=== PATIENT | male | born 1960 ===

== ENCOUNTER 2017-02-18 08:32 | Emergency (ER) | payer MEDICAID ==
[2017-02-18 08:38] VITALS: BMI 33.2
[2017-02-18 08:45] VITALS: BP 160/78; PULSE 65; RESP 16; TEMP 98.3; O2SAT 98
[2017-02-18] MEDS ORDERED: Naproxen 550 mg Tab PO STA (08:46)
--- NOTE | 2017-02-18 08:51 | ED PDOC ---
Arrival/HPI - General Chief Complaint: Upper Extremity Problem/Injury Time Seen by Provider: 02/18/17 08:43 Historian: Patient - History of Present Illness Narrative History of Present Illness (Text): 02/18/17 08:46 A 56 year old male presents to the emergency department complaining of left shoulder pain since this morning. Patient states his pain is worse with movement.He reports he was lifting weights last night at the gym. Patient denies any falls, trauma, other injuries, fever, nausea, vomiting, diarrhea, abdominal pain, chest pain, shortness of breath or any other complaints. Time/Duration: Other (This morning) Symptom Course: Unchanged Quality: Other Context: Home Past Medical History - Provider Review Nursing Documentation Reviewed: Yes - Infectious Disease Hx of Infectious Diseases: None - Tetanus Immunization Tetanus Immunization: Unknown - Cardiac Hx Cardiac Disorders: No - Pulmonary Hx Respiratory Disorders: No - Neurological Hx Neurological Disorder: No - HEENT Hx HEENT Disorder: No - Renal Hx Renal Disorder: No - Endocrine/Metabolic Hx Endocrine Disorders: No - Hematological/Oncological Hx Blood Disorders: No - Integumentary Hx Dermatological Disorder: No - Musculoskeletal/Rheumatological Hx Musculoskeletal Disorders: No - Gastrointestinal Hx Gastrointestinal Disorders: No - Genitourinary/Gynecological Hx Genitourinary Disorders: No - Psychiatric Hx Psychophysiologic Disorder: Yes Hx Bipolar Disorder: Yes (1) Hx Substance Use: No - Surgical History Hx Orthopedic Surgery: Yes - Anesthesia Hx Anesthesia: No Hx Anesthesia Reactions: No Hx Malignant Hyperthermia: No Family/Social History - Physician Review Nursing Documentation Reviewed: Yes Family/Social History: No Known Family HX Smoking Status: Light Smoker < 10 Cigarettes Daily Hx Alcohol Use: No Hx Substance Use: No Allergies/Home Meds Allergies/Adverse Reactions: Allergies No Known Allergies Allergy (Verified 07/19/16 10:16) Home Medications: Home Meds Medication Instructions Recorded Confirmed Divalproex [Depakote DR TAB] 1,500 mg PO BID 11/09/15 07/19/16 buPROPion [Wellbutrin] 75 mg PO DAILY 11/09/15 07/19/16 Review of Systems - Physician Review All systems were reviewed & negative as marked: Yes - Review of Systems Constitutional: absent: Fevers Respiratory: absent: SOB Cardiovascular: absent: Chest Pain Gastrointestinal: absent: Abdominal Pain, Diarrhea, Nausea, Vomiting Genitourinary Male: Other (Left shoulder pain) Physical Exam Vital Signs Reviewed: Yes Vital Signs Temp Pulse Resp BP Pulse Ox 02/18/17 08:44 98.3 F 65 16 160/78 H 98 Temperature: Afebrile Blood Pressure: Hypertensive Pulse: Regular Respiratory Rate: Normal Appearance: Positive for: Well-Appearing, Non-Toxic, Comfortable Pain Distress: None Mental Status: Positive for: Alert and Oriented X 3 - Systems Exam Head: Present: Atraumatic, Normocephalic Pupils: Present: PERRL Extroacular Muscles: Present: EOMI Conjunctiva: Present: Normal Respiratory/Chest: Present: Clear to Auscultation, Good Air Exchange. No: Respiratory Distress, Accessory Muscle Use Cardiovascular: Present: Regular Rate and Rhythm, Normal S1, S2. No: Murmurs Upper Extremity: Present: NORMAL PULSES, Tenderness (Left shoulder tenderness to palpation), Neurovascularly Intact. No: Cyanosis, Edema, Normal ROM ( Limited ROM secondary to pain), Swelling, Erythema, Temperature Abnormalties, Deformity Neurological: Present: GCS=15, CN II-XII Intact, Speech Normal Skin: Present: Warm, Dry, Normal Color. No: Rashes Psychiatric: Present: Alert, Oriented x 3, Normal Insight, Normal Concentration Medical Decision Making ED Course and Treatment: 02/18/17 08:46 Impression: A 56 year old male with left shoulder pain, worse with movement. Plan: -- Left shoulder xray -- Naproxen -- Reassess and disposition Progress Notes: 02/18/17 09:32 pt given sling, advise outpt ortho f/u neurovasc intact 02/18/17 09:32 - RAD Interpretation Radiology Orders: 02/18/17 08:46 SHOULDER LEFT [RAD] Stat - Medication Orders Current Medication Orders: Discontinued Medications Naproxen (Anaprox Ds) 550 mg PO STAT STA Stop: 02/18/17 08:47 Last Admin: 02/18/17 09:01 Dose: 550 MG - Scribe Statement The provider has reviewed the documentation as recorded by the Nikita Huerta Provider Scribe Attestation: All medical record entries made by the Scribe were at my direction and personally dictated by me. I have reviewed the chart and agree that the record accurately reflects my personal performance of the history, physical exam, medical decision making, and the department course for this patient. I have also personally directed, reviewed, and agree with the discharge instructions and disposition. Disposition/Present on Arrival - Present on Arrival Any Indicators Present on Arrival: No History of DVT/PE: No History of Uncontrolled Diabetes: No Urinary Catheter: No History of Decub. Ulcer: No History Surgical Site Infection Following: None - Disposition Have Diagnosis and Disposition been Completed?: Yes Diagnosis: Shoulder sprain Disposition: HOME/ ROUTINE Disposition Time: 09:32 Condition: STABLE Discharge Instructions (ExitCare): Shoulder Sprain (ED) Additional Instructions: please follow up with specialist and pmd/clinic. return to er with worsening symptoms or concerns. Prescriptions: Naproxen 500 mg PO BID PRN #14 tab PRN Reason: Pain, Mild (1-3)
--- NOTE | 2017-02-18 10:18 | RAD ---
PROCEDURE: Radiographs of the Left Shoulder HISTORY: trauma COMPARISON: No prior. FINDINGS: BONES: There is an old fracture deformity of the mid clavicle. JOINTS: Normal. Glenohumeral and acromioclavicular joints preserved. No osteoarthritis. SOFT TISSUES: Normal. OTHER FINDINGS: None. IMPRESSION: No acute findings
== END 2017-02-18 09:58 | disposition home or self-care (01) ==
LOC: ED 08:32
DX: S43.402A Unspecified sprain of left shoulder joint, initial encounter (principal); X50.0XXA Overexertion from strenuous movement or load, initial encounter; Y93.B3 Activity, free weights; Y92.39 Other specified sports and athletic area as the place of occurrence of the external cause

== ENCOUNTER 2017-04-06 11:01 | Emergency (ER) | payer SELFPAY ==
[2017-04-06 11:12] VITALS: PULSE 66; RESP 16; TEMP 98; O2SAT 98; BMI 32.3
--- NOTE | 2017-04-06 12:18 | RAD ---
PROCEDURE: Right Foot Radiographs. HISTORY: pain to 1st and 2nd toe; s/p table falling on toes COMPARISON: None. FINDINGS: BONES: There is a fracture through the base of the 1st distal phalanx on the lateral side JOINTS: Normal. SOFT TISSUES: Normal. OTHER FINDINGS: None. IMPRESSION: There is a fracture through the base of the 1st distal phalanx on the lateral side
--- NOTE | 2017-04-06 12:29 | ED PDOC ---
Arrival/HPI - General Historian: Patient - History of Present Illness Time/Duration: Other (yesterday) Quality: Throbbing Severity Level: 5 - General Chief Complaint: Lower Extremity Problem/Injury Time Seen by Provider: 04/06/17 11:21 - History of Present Illness Narrative History of Present Illness (Text): 04/06/17 13:42 56-year-old male presents today with a right great toe and second toe pain status post injury. Patient states yesterday a table fell on the foot. Patient is complaining of pain to the toes. He denies numbness weakness or tingling in the extremity. He is complaining of pain with range of motion of the toes. Denies fevers or chills. Patient states the table came across and landed on the first and second toe and he noticed bruising today. Complaining of difficulty with ambulation. (Teagan Lazcano) Past Medical History - Provider Review Nursing Documentation Reviewed: Yes - Travel History Have you recently traveled outside [place] w/in the past 3 mons?: No - Infectious Disease Hx of Infectious Diseases: None - Tetanus Immunization Tetanus Immunization: Unknown - Cardiac Hx Cardiac Disorders: No - Pulmonary Hx Respiratory Disorders: No - Neurological Hx Neurological Disorder: No - HEENT Hx HEENT Disorder: No - Renal Hx Renal Disorder: No - Endocrine/Metabolic Hx Endocrine Disorders: No - Hematological/Oncological Hx Blood Disorders: No - Integumentary Hx Dermatological Disorder: No - Musculoskeletal/Rheumatological Hx Musculoskeletal Disorders: No - Gastrointestinal Hx Gastrointestinal Disorders: No - Genitourinary/Gynecological Hx Genitourinary Disorders: No - Psychiatric Hx Psychophysiologic Disorder: Yes Hx Bipolar Disorder: Yes (1) Hx Substance Use: No - Surgical History Hx Orthopedic Surgery: Yes - Anesthesia Hx Anesthesia: No Hx Anesthesia Reactions: No Hx Malignant Hyperthermia: No Family/Social History - Physician Review Nursing Documentation Reviewed: Yes Family/Social History: Unknown Family HX Smoking Status: Light Smoker < 10 Cigarettes Daily Hx Alcohol Use: No Hx Substance Use: No Allergies/Home Meds Allergies/Adverse Reactions: Allergies No Known Allergies Allergy (Verified 07/19/16 10:16) Home Medications: Home Meds Medication Instructions Recorded Confirmed Divalproex [Depakote DR TAB] 1,500 mg PO BID 11/09/15 04/06/17 buPROPion [Wellbutrin] 75 mg PO DAILY 11/09/15 04/06/17 Review of Systems - Review of Systems Constitutional: absent: Fatigue, Fevers Respiratory: absent: SOB, Cough Cardiovascular: absent: Chest Pain, Palpitations Gastrointestinal: absent: Abdominal Pain Genitourinary Male: absent: Dysuria Musculoskeletal: Arthralgias. absent: Back Pain, Neck Pain Skin: absent: Laceration Psychiatric: absent: Anxiety, Depression Physical Exam Vital Signs Reviewed: Yes Temperature: Afebrile Blood Pressure: Hypertensive Pulse: Regular Respiratory Rate: Normal Appearance: Positive for: Well-Appearing, Non-Toxic, Comfortable Pain Distress: None Mental Status: Positive for: Alert and Oriented X 3 - Systems Exam Head: Present: Atraumatic Respiratory/Chest: Present: Clear to Auscultation Cardiovascular: Present: Regular Rate and Rhythm Lower Extremity: Present: NORMAL PULSES, Tenderness (right foot; + edema and ecchymosis noted to dorsal aspect of the right great toe and 2nd toe. decreased rom of toes; sensation and distal pulses intact. cap refill <2. ), Swelling, Neurovascularly Intact, Capillary Refill < 2 s. No: CALF TENDERNESS, Normal ROM , Erythema Neurological: Present: GCS=15 Skin: Present: Warm, Dry, Normal Color Psychiatric: Present: Alert, Oriented x 3 Vital Signs Temp Pulse Resp BP Pulse Ox 04/06/17 13:00 66 16 158/72 H 98 04/06/17 11:08 98.0 F 66 16 158/89 H 98 Medical Decision Making ED Course and Treatment: I was available for consultation during PA evaluation. The chart was reviewed by me, and I agree with disposition. The documented history was done by the physician blood bank technician. The documented physical exam was done by the physician blood bank technician. The documented procedures were done by the physician blood bank technician. (Wojciech Sorensen) Patient is nontoxic well-appearing in no distress. vital signs are stable. XRAY right foot; + fx great toe COY TAPE TOE cane given for ambulation I discussed all results in depth with the patient and advised follow-up with the primary care physician/orthopedist within the next 2 days. I advised immediate return if symptoms worsen or persist or if new concerning symptoms develop. Patient verbalizes understanding of discharge instructions and need for immediate followup. IMPRESSION;Contusion, TOE Motrin every 6 hours as needed for pain Follow up with primary care physician within the next 2 days Follow up with the orthopedist within the next 2 days Return if symptoms worsen persist or if new symptoms develop (Teagan Lazcano) - RAD Interpretation Radiology Orders: 04/06/17 11:22 FOOT RIGHT 3 VIEWS ROUTINE [RAD] Stat - Medication Orders Current Medication Orders: Discontinued Medications Ketorolac Tromethamine (Toradol) 60 mg IM STAT STA Stop: 04/06/17 11:24 Last Admin: 04/06/17 12:05 Dose: 60 mg Disposition/Present on Arrival - Present on Arrival Any Indicators Present on Arrival: No History of DVT/PE: No History of Uncontrolled Diabetes: No Urinary Catheter: No History of Decub. Ulcer: No History Surgical Site Infection Following: None - Disposition Have Diagnosis and Disposition been Completed?: Yes Disposition Time: 12:26 Patient Plan: Discharge - Disposition Diagnosis: Toe fracture Disposition: HOME/ ROUTINE Condition: GOOD Discharge Instructions (ExitCare): Toe Fracture (ED) Additional Instructions: Motrin every 6 hours as needed for pain Follow up with primary care physician within the next 2 days Follow up with the orthopedist within the next 2 days Return if symptoms worsen persist or if new symptoms develop Prescriptions: Ibuprofen [Motrin] 600 mg PO Q6H PRN #20 tab PRN Reason: pain/fever reduction Referrals: Mustapha Trevino DPM [Staff Provider] - Follow up with primary Cathy Jose DPM [Staff Provider] - Follow up with primary Lionel Martínez MD [Staff Provider] - Follow up with primary Forms: WORK NOTE
[2017-04-06 13:29] VITALS: BP 158/72
== END 2017-04-06 13:00 | disposition home or self-care (01) ==
LOC: ED 11:01
DX: S92.421A Displaced fracture of distal phalanx of right great toe, initial encounter for closed fracture (principal); W22.8XXA Striking against or struck by other objects, initial encounter; Y93.89 Activity, other specified; Y92.89 Other specified places as the place of occurrence of the external cause
CPT/HCPCS: 73630; 96372; 99284; J1885

== ENCOUNTER 2017-07-25 10:44 | Inpatient (IN) | payer MEDICAID, OTHER ==
[2017-07-25 10:45] VITALS: BMI 32.3
[2017-07-25 11:01] VITALS: O2SAT 97
--- NOTE | 2017-07-25 11:07 | ED PDOC ---
Arrival/HPI - General Time Seen by Provider: 07/25/17 11:02 Historian: Patient - History of Present Illness Narrative History of Present Illness (Text): 07/25/17 11:04 A 56 year old male presents to the emergency department complaining of depressive thoughts. Patient reports he is thinking of [place]. Patient denies any physical complaints. Patient denies any fever, chills , homicidal ideation, hallucinations or any other complaints. Time/Duration: Prior to Arrival Symptom Course: Unchanged Past Medical History - Provider Review Nursing Documentation Reviewed: Yes - Infectious Disease Hx of Infectious Diseases: None - Tetanus Immunization Tetanus Immunization: Unknown - Cardiac Hx Cardiac Disorders: No - Pulmonary Hx Respiratory Disorders: No - Neurological Hx Neurological Disorder: No - HEENT Hx HEENT Disorder: No - Renal Hx Renal Disorder: No - Endocrine/Metabolic Hx Endocrine Disorders: No - Hematological/Oncological Hx Blood Disorders: No - Integumentary Hx Dermatological Disorder: No - Musculoskeletal/Rheumatological Hx Musculoskeletal Disorders: No - Gastrointestinal Hx Gastrointestinal Disorders: No - Genitourinary/Gynecological Hx Genitourinary Disorders: No - Psychiatric Hx Psychophysiologic Disorder: Yes Hx Bipolar Disorder: Yes (1) Hx Substance Use: No - Surgical History Hx Orthopedic Surgery: Yes - Anesthesia Hx Anesthesia: No Hx Anesthesia Reactions: No Hx Malignant Hyperthermia: No Family/Social History - Physician Review Nursing Documentation Reviewed: Yes Family/Social History: No Known Family HX Smoking Status: Light Smoker < 10 Cigarettes Daily Hx Alcohol Use: No Hx Substance Use: No Allergies/Home Meds Allergies/Adverse Reactions: Allergies No Known Allergies Allergy (Verified 07/19/16 10:16) Home Medications: Home Meds Medication Instructions Recorded Confirmed Divalproex [Depakote DR TAB] 1,500 mg PO BID 11/09/15 07/25/17 buPROPion [Wellbutrin] 75 mg PO DAILY 11/09/15 07/25/17 Physical Exam - Physical Exam Narrative Physical Exam (Text): - Review of Systems Constitutional: Normal. absent: Fatigue, Weight Change, Fevers Eyes: Normal ENT: denies sore throat, denies tristhmus Respiratory: Normal. absent: SOB, Cough, Sputum Cardiovascular: absent: Chest Pain, Palpitations, Syncope Gastrointestinal: Normal. absent: Abdominal Pain, Diarrhea, Nausea, Vomiting Genitourinary: Normal. absent: Dysuria, Frequency, Hematuria Musculoskeletal: Normal. absent: Arthralgias, Back Pain, Neck Pain Skin: no rashes, no erythema Neurological: absent: Focal Weakness Endocrine: Normal Hemo/Lymphatic: Normal Psychiatric: (+) Suicidal ideation absent: homicidal ideations, hallucinations Physical exam Patient appears age appropriate in no distress, speaking full sentences without difficulty - Systems Exam Head: Present: Atraumatic, Normocephalic Pupils: Present: PERRL Extroacular Muscles: Present: EOMI Conjunctiva: Present: Normal Mouth: Present: Moist Mucous Membranes Neck: Present: Normal Range of Motion. No: MIDLINE TENDERNESS, Paraspinal Tenderness Respiratory/Chest: Present: Clear to Auscultation, Good Air Exchange. No: Respiratory Distress, Accessory Muscle Use, Tachypneic Cardiovascular: Present: Regular Rate and Rhythm, Normal S1, S2, Peripheal Pulses Present. No: Murmurs Abdomen: Present: Normal Bowel Sounds. No: Tenderness, Distention, Peritoneal Signs, Rebound, Guarding Back: Present: Normal Inspection. No: Midline Tenderness, Paraspinal Tenderness Upper Extremity: Present: Normal Inspection. No: Cyanosis, Edema Lower Extremity: Present: Normal Inspection. No: Edema Neurological: Present: GCS=15, Speech Normal, cranial nerves II through XII fully intact with no cerebellar abnormality, neurosensory fully intact. No focal neurological deficits. Skin: Present: Warm, Dry, Normal Color. No: Rashes Lymphatic: Present: OX3, NI, NC Psychiatric: Present: Alert, Oriented x 3, Normal Insight, Normal Concentration Vital Signs Reviewed: Yes Vital Signs Temp Pulse Resp BP Pulse Ox 07/25/17 14:25 58 L 16 125/68 97 07/25/17 10:59 98.4 F 67 18 150/80 97 Temperature: Afebrile Blood Pressure: Normal Pulse: Regular Respiratory Rate: Normal Appearance: Positive for: Well-Appearing, Non-Toxic, Comfortable Pain Distress: None Mental Status: Positive for: Alert and Oriented X 3 Medical Decision Making ED Course and Treatment: 07/25/17 11:04 Impression: A 56 year old male with suicidal ideation. Physical exam unremarkable. Plan: -- Chest xray -- Labs -- Urinalysis -- Ativan -- Reassess and disposition Progress Notes: Report Date : 07/25/2017 13:29:31 Procedure: Chest xray Dictator : Frankie Leavitt MD IMPRESSION: Re- demonstrated is elevation of the right hemidiaphragm which could be due some scalloping and/or eventration. There may also be some mild right basilar atelectasis. Left lung clear. 07/25/17 13:54 Spoke with PES workerAshanti states [facility]. [facility] to admit to Dr. Cedeno's service pt in no distress, aware of and agrees with plan - Lab Interpretations Lab Results: 07/25/17 11:16 07/25/17 11:16 Lab Results 07/25/17 11:56: Urine Opiates Screen Negative, Urine Methadone Screen Negative, Ur Barbiturates Screen Negative, Ur Phencyclidine Scrn Negative, Ur Amphetamines Screen Negative, U Benzodiazepines Scrn Negative, U Oth Cocaine Metabols Negative, U Cannabinoids Screen Negative 07/25/17 11:56: Urine Color Yellow, Urine Appearance Clear, Urine pH 6.0, Ur Specific [place] 1.010, Urine Protein Negative, Urine Glucose (UA) Negative, Urine Ketones Negative, Urine Blood Negative, Urine Nitrate Negative, Urine Bilirubin Negative, Urine Urobilinogen 0.2, Ur Leukocyte Esterase Negative 07/25/17 11:16: Alcohol, Quantitative < 10 07/25/17 11:16: Salicylates < 1 L, Acetaminophen < 10.0 L 07/25/17 11:16: Sodium 144, Potassium 4.3, Chloride 104, Carbon Dioxide 28, Anion Gap 16, BUN 23 H, Creatinine 1.5 H, Est GFR ( Amer) 59, Est GFR ( Non-Af Amer) 49, Random Glucose 127 H, Calcium 9.8, Total Bilirubin 0.5, AST 57 , ALT 91 H, Alkaline Phosphatase 85, Total Protein 7.4, Albumin 4.8, Globulin 2.6, Albumin/Globulin Ratio 1.8 07/25/17 11:16: WBC 9.6, RBC 5.59, Hgb 15.4, Hct 45.1, MCV 80.7, MCH 27.5, MCHC 34.1, RDW 13.9, Plt Count 245, MPV 11.4 H, Gran % 61.8, Lymph % (Auto) 28.5, [place] % (Auto) 7.2 H, Eos % (Auto) 2.1, Baso % (Auto) 0.4, Gran # 5.91, Lymph # 2.7, [place] # 0.7 H, Eos # 0.2, Baso # 0.04 I have reviewed the lab results: Yes - RAD Interpretation Radiology Orders: 07/25/17 11:03 CHEST PORTABLE [RAD] Stat - Medication Orders Current Medication Orders: Discontinued Medications Lorazepam (Ativan) 2 mg PO ONCE ONE PRN Reason: Protocol Stop: 07/25/17 11:05 Last Admin: 07/25/17 11:56 Dose: 2 mg - Scribe Statement The provider has reviewed the documentation as recorded by the Nikita Huerta Provider Scribe Attestation: All medical record entries made by the Scribkya were at my direction and personally dictated by me. I have reviewed the chart and agree that the record accurately reflects my personal performance of the history, physical exam, medical decision making, and the department course for this patient. I have also personally directed, reviewed, and agree with the discharge instructions and disposition. Disposition/Present on Arrival - Present on Arrival Any Indicators Present on Arrival: No History of DVT/PE: No History of Uncontrolled Diabetes: No Urinary Catheter: No History Surgical Site Infection Following: None - Disposition Have Diagnosis and Disposition been Completed?: Yes Diagnosis: Suicidal ideation Disposition: HOSPITALIZED Disposition Time: 15:27 Patient Plan: Admission Condition: FAIR Referrals: PCP,NO [Primary Care Provider] - Follow up with primary
[2017-07-25 11:20] LABS: BASO # 0.04 K/mm3 (0.0-2.0); BASO % 0.4 % (0.0-3.0); EOS # 0.2 (0.0-0.7); EOS % 2.1 % (1.5-5.0); GRAN # 5.91 (1.4-6.5); GRAN % 61.8 % (50.0-68.0); HEMATOCRIT 45.1 % (42.0-52.0); LYMPH # 2.7 (1.2-3.4); LYMPH % 28.5 % (22.0-35.0); MEAN CELL VOLUME 80.7 fl (80.0-105.0); MEAN CORPUSCULAR HEMOGLOBIN 27.5 pg (25.0-35.0); MEAN CORPUSCULAR HGB CONC 34.1 g/dl (31.0-37.0); MEAN PLATELET VOLUME 11.4 fl (7.0-11.0); MONO # 0.7 (0.1-0.6); MONO % 7.2 % (1.0-6.0); RED CELL DISTRIBUTION WIDTH 13.9 % (11.5-14.5); WHITE BLOOD COUNT 9.6 10^3/ul (4.5-11.0)
[2017-07-25 11:31] LABS: ALB/GLOB RATIO 1.8 (1.1-1.8); BILIRUBIN,TOTAL 0.5 mg/dL (0.2-1.3); CALCIUM 9.8 mg/dL (8.4-10.5); POTASSIUM 4.3 mmol/L (3.6-5.0); TOTAL PROTEIN 7.4 g/dL (5.8-8.3)
[2017-07-25 12:12] LABS: URINE BILIRUBIN NEGATIVE (NEGATIVE); URINE BLOOD NEGATIVE (NEGATIVE); URINE GLUCOSE (UA) NEGATIVE (NEGATIVE); URINE KETONE NEGATIVE (NEGATIVE); URINE LEUKOCYTE ESTERASE NEGATIVE Leu/uL (NEGATIVE); URINE PROTEIN NEGATIVE mg/dL (<30 mg/dL); URINE UROBILINOGEN 0.2 E.U./dL (<1 E.U./dL)
[2017-07-25 12:15] LABS: URINE APPEARANCE CLEAR (CLEAR); URINE COLOR YELLOW (YELLOW)
--- NOTE | 2017-07-25 13:30 | RAD ---
HISTORY: Medical clearence COMPARISON: Comparison chest dated 07/19/2016 FINDINGS: LUNGS: Re- demonstrated is elevation of the right hemidiaphragm which could be due some scalloping and/or eventration. There may also be some mild right basilar atelectasis. Left lung clear. PLEURA: No significant pleural effusion identified, no pneumothorax apparent. CARDIOVASCULAR: Normal. OSSEOUS STRUCTURES: No significant abnormalities. VISUALIZED UPPER ABDOMEN: Normal. OTHER FINDINGS: None. IMPRESSION: Re- demonstrated is elevation of the right hemidiaphragm which could be due some scalloping and/or eventration. There may also be some mild right basilar atelectasis. Left lung clear.
--- NOTE | 2017-07-25 14:51 | CARD ---
APPROVED REPORT EKG Measurement Heart [id number] <Conclusion> Sinus rhythm with premature atrial complex Q in 3
[2017-07-25] MEDS ORDERED: Magnesium Hydroxide Susp 30 ml UD PO PRN (16:49)
--- NOTE | 2017-07-25 17:40 | PCM.BM ---
<Rip Mcdonald - Last Filed: 07/25/17 17:38> Treatment Plan Problems - Problems identified on initial assessmt Suicidal Ideation Date Initiated: 07/25/17 Time Initiated: 17:39 Assessment reference: NA Status: Active Priority: 1 Hopelessness Date Initiated: 07/25/17 Time Initiated: 17:39 Assessment reference: NA Status: Active Priority: 2 Worthlessness Date Initiated: 07/25/17 Time Initiated: 17:39 Assessment reference: NA Status: Active Priority: 3 Ineffective Coping Date Initiated: 07/25/17 Time Initiated: 17:39 Assessment reference: NA Status: Active Priority: 4 Treatment assets and liabiliti Patient Assests: cooperative, ADL independent, physically healthy, good support system, negotiates basic needs, cognitively intact, good interpersonal skills Patient Liabilities: live alone, financial problems - Milieu Protocol Maintain good personal hygiene: daily Encourage regular showers, daily Remind patient to perform daily oral care Maintain personal safety: every shift Educate patient to report safety concerns to staff, every shift Monitor environment for contraband/sharps Medication safety: Monitor for expected outcome, potential side effects: every shift, Assess barriers to learning: every shift, Assess readiness for medication education: every shift Discharge/Continuing Care - Education Needs Education Needs: Patient Medication, Patient Diagnosis/Disease Process, Patient Coping Skills, Patient Community resources, Patient Nutrition, Significant Other Aftercare Safety Plan - Discharge Discharge Criteria: Tolerates medication w/o severe side effects, Free of Suicidal thoughts, Normal sleep pattern, Reduction of target symptoms Discharge to:: Home <Treasure Cedeno - Last Filed: 07/26/17 14:01> - Diagnosis (1) Bipolar II disorder Status: Acute Interventions: 07/26/17 14:02 Psychoeducation Psychopharmacology/adjustment of medications as needed/ monitoring possible side effects Monitor blood level of mood stabilizers Evaluate pt on daily basis Compliance with medications and follow up appointments Suicide and homicide risk assessment and prevention, coping strategies, safety plan Relapse prevention Reduction of symptoms Improve functional status Family involvement As outpatient: cognitive behavioral therapy <Rod Oropeza - Last Filed: 07/27/17 09:56> - Milieu Protocol Maintain good personal hygiene: daily Encourage regular showers, daily Remind patient to perform daily oral care, daily Assist patient to perform ADL's Maintain personal safety: daily Educate patient to report safety concerns to staff, daily Monitor environment for contraband/sharps Medication safety: Monitor for expected outcome, potential side effects: daily, Assess barriers to learning: daily, Assess readiness for medication education: daily Discharge/Continuing Care - Education Needs Education Needs: Patient Medication, Patient Diagnosis/Disease Process, Patient Coping Skills, Patient Community resources, Patient Activities of Daily Living, Patient Uses of Medical Equipment, Patient Health Practices/Safety, Patient Aftercare Safety Plan <Deborah Fox - Last Filed: 07/27/17 12:34> Family Contact Family involvement: Family/SO is involved - Goals for Treatment Patient goals for treatment: "To find a psychiatrist and find a job." <Autumn David - Last Filed: 07/27/17 13:32>
[2017-07-25] MEDS: Divalproex 500 mg DR(BID formulation) PO SCH (21:36)
[2017-07-26] MEDS: Divalproex 500 mg DR(BID formulation) PO SCH ×2 (08:22→21:55)
[2017-07-26 09:34] LABS: ALB/GLOB RATIO 1.6 (1.1-1.8); ALKALINE PHOSPHATASE 80 U/L (38-126); ALT/SGPT 92 U/L (7-56); AST/SGOT 54 U/L (17-59); BILIRUBIN,TOTAL 0.6 mg/dL (0.2-1.3); BLOOD UREA NITROGEN 19 mg/dL (7-21); CALCIUM 9.8 mg/dL (8.4-10.5); CARBON DIOXIDE 28 mmol/L (21-33); CHLORIDE 104 mmol/L (95-110); GFR AFRICAN-AMERICAN > 60; GLUCOSE,RANDOM 160 mg/dL (70-110); POTASSIUM 4.4 mmol/L (3.6-5.0); SODIUM 144 mmol/L (132-148); TOTAL PROTEIN 7.4 g/dL (5.8-8.3)
[2017-07-26 09:45] LABS: CHOLESTEROL 165 mg/dL (130-200)
[2017-07-26 09:52] LABS: FREE T4 1.22 ng/dL (0.78-2.19)
[2017-07-26 10:06] LABS: THYROID STIMULATING HORMONE 1.82 mIU/mL (0.46-4.68)
--- NOTE | 2017-07-26 14:40 | PCM.PSYCH ---
Initial Psychiatric Evaluation - Initial Psychiatric Evaluation Type of Admission: Voluntary Legal Status: Capacity (pt has capacity to sign concent for treatment) Chief Complaint (in patient's own words): "I was thinking to jump off the bridge, I even had a back up plan to walk into the traffic in case bridge will be closed" Patient's Reaction to Hospitalization: pt was admitted for depressed mood, suicidal ideation with the plan, see HPI History of Present Illness and Precipitating Events: Shortly pt is 56yo male with self reported h/o bipolar disorder, one previous psychiatric admission in 1998, long h/o polysubstance abuse and dependence, currently in long and sustained remission since 2011, h/o one suicidal attempt in 1998, brought himself to the hospital looking for help for worsening of depression for the past four weeks, feeling of hopelessness, helplessness, inability to function, suicidal ideation and a plan to jump [place] or walk into the traffic. Due to the severity of patients symptoms and suicidal ideation with the two step plan, pt could not be maintained as outpatient setting, needs further evaluation and stabilization in acute psychiatric unit. Stress: worsening of depression, inability to perform at his job, as a result lost a job, financial stress, poor coping skills. Personal hygiene/ ADLS: good personal hygiene, muscle build, but not shaved, good ADLs. Psychosis: no signs of psychosis Depression:for the past four weeks feeling more depressed, hopeless, helpless, worthless, guilty,suicidal ideation with the plan to jump [place] (very strong for the past two days), back up plan "I thought if bridge would be closed, I will walk into the traffic, I know the trucks highway", difficulties to fall and to stay asleep, difficulties to concentrate, stay focused. pt contracted for safety during the interview. Opal:h/o hypomanic episodes which lasted for one day max. pt said that he was officially dx with BD. Anxiety:denied feeling anxious, but worried about his financial situation. Abuse:physical and emotional, at times has flashbacks. Panic attacks: denied Substance abuse: long h/o polysubstance abuse and dependence. pt reported being sober since 2011, has sponsor for the past five years. h/o rehabs and detoxes. 1997 Rehab in [place]. Smoking: smokes about 7-8 cigarettes a day, counseling provided, nicotine patch offered Smoking Cessation Counseling: The patient was counseled as to the multiple risks to his/her health from continued use of tobacco products. It was explained that continuing to smoke may lead to multiple short and intermission coordinator negative health consequences, including but not limited to mouth/esophageal /lung cancer, COPD, and heart disease. He/she states he/she understands these risks, and also understands the options and resources available to him/her to help him/her stop smoking. Nicotine replacement therapy, local hotlines, and local resources were discussed as viable options for helping him/her stop his/her tobacco use. The total time spent counseling the patient regarding tobacco cessation was 3 minutes Past psychiatric h/o:one prior psych admission in 1997 "at the context of my addiction to all the drugs", pt said he overdosed on xanax, then pt was observed for 48hrs, then was transferred to rehab in [place]. Pt said he was officially dx with bipolar disorder, was doing well on depakote and wellbutrin, pt moved to [place] from [place] and was not able to transfer all of his benefits here, was not able to find a psychiatrist. Pt was off meds for the past 4 months. Medical h/o: pt is relatively healthy Family h/o: denied Social h/o: pt does not work now, was working as a counselor for the drug addicts. Treatment goals: "I want to go back on medications, I want to be okay" Labs: 07/25/17 11:16 07/26/17 08:18 Lab Results 07/26/17 08:18: Sodium 144, Potassium 4.4, Chloride 104, Carbon Dioxide 28, Anion Gap 16, BUN 19, Creatinine 0.9, Est GFR ( Amer) > 60, Est GFR (Non- Af Amer) > 60, Random Glucose 160 H, Calcium 9.8, Total Bilirubin 0.6, AST 54, ALT 92 H, Alkaline Phosphatase 80, Total Protein 7.4, Albumin 4.5, Globulin 2.8 , Albumin/Globulin Ratio 1.6 07/26/17 08:15: Free T4 1.22, TSH 3rd Generation 1.82 07/26/17 08:15: Triglycerides 273 H, Cholesterol 165, LDL Cholesterol Direct 101 , HDL Cholesterol 38 07/25/17 11:56: Urine Opiates Screen Negative, Urine Methadone Screen Negative, Ur Barbiturates Screen Negative, Ur Phencyclidine Scrn Negative, Ur Amphetamines Screen Negative, U Benzodiazepines Scrn Negative, U Oth Cocaine Metabols Negative, U Cannabinoids Screen Negative 07/25/17 11:56: Urine Color Yellow, Urine Appearance Clear, Urine pH 6.0, Ur Specific Taylor 1.010, Urine Protein Negative, Urine Glucose (UA) Negative, Urine Ketones Negative, Urine Blood Negative, Urine Nitrate Negative, Urine Bilirubin Negative, Urine Urobilinogen 0.2, Ur Leukocyte Esterase Negative 07/25/17 11:16: Alcohol, Quantitative < 10 07/25/17 11:16: Salicylates < 1 L, Acetaminophen < 10.0 L 07/25/17 11:16: Sodium 144, Potassium 4.3, Chloride 104, Carbon Dioxide 28, Anion Gap 16, BUN 23 H, Creatinine 1.5 H, Est GFR ( Amer) 59, Est GFR ( Non-Af Amer) 49, Random Glucose 127 H, Calcium 9.8, Total Bilirubin 0.5, AST 57 , ALT 91 H, Alkaline Phosphatase 85, Total Protein 7.4, Albumin 4.8, Globulin 2.6, Albumin/Globulin Ratio 1.8 07/25/17 11:16: WBC 9.6, RBC 5.59, Hgb 15.4, Hct 45.1, MCV 80.7, MCH 27.5, MCHC 34.1, RDW 13.9, Plt Count 245, MPV 11.4 H, Gran % 61.8, Lymph % (Auto) 28.5, Porter % (Auto) 7.2 H, Eos % (Auto) 2.1, Baso % (Auto) 0.4, Gran # 5.91, Lymph # 2.7, Porter # 0.7 H, Eos # 0.2, Baso # 0.04 Vital Signs Temp Pulse Resp BP Pulse Ox 07/26/17 07:00 98.3 F 60 20 142/69 07/25/17 16:50 18 07/25/17 14:25 58 L 16 125/68 97 07/25/17 10:59 98.4 F 67 18 150/80 97 Review of Systems: see Medical consult. MSE:pt was alert/oriented/pleasant and cooperative, socially appropriate, good hygiene, fund of knowledge is good. 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 Pt looks stated age, there is no psychomotor agitation/ retardation, speech was: normal rate/quality/quantity, eye contact: good, mood described: "depressed and hopeless", affect: constricted and mood congruent, thought process: coherent and goal directed, thought content: pt denied SI/ HI, pt denied v/a/t hallucinations, denied paranoid ideation, pt does not appeared to be psychotic, fair insight/judgment, impulses are well controlled. Impression: as per h/o most likely Bipolar II, most recent episode is depressed r/o MDD r/o adjustment disorder polysubstance abuse in long and sustained remission. Treatment plan: Milieu/structure/supportive therapy Medical consult appreciated, see medical team note for more detailed info SW consultation for discharge plan and social issues Med management wellbutrin 75mg po bid for depression depakote 500mg po bid for mood stabilization Family involvement Follow up on labs Will monitor closely Pt was educated about risk/benefits and alternatives of medications, coping strategies (safety plan, suicide prevention), relapse prevention, importance of follow up with psychiatrist and therapist, stay away from drugs/alcohol/smoking Current Medications: Active Medications Generic Name Dose Route Start Last Admin Trade Name Freq PRN Reason Stop Dose Admin Acetaminophen 650 mg 07/25/17 16:49 Tylenol 325mg Tab PO Q4 PRN Pain, Mild (1-3) Al Hydrox/Mg Hydrox/Simethicone 30 ml 07/25/17 16:49 Maalox Plus 30 Ml PO DAILY PRN Upset Stomach Bupropion HCl 75 mg 07/26/17 08:00 07/26/17 08:23 Wellbutrin PO 75 mg BID [facility] Administration Divalproex Sodium 500 mg 07/25/17 22:00 07/26/17 08:[address](*Bid*) PO 500 mg 0800,2200 [facility] Administration Magnesium Hydroxide 30 ml 07/25/17 16:49 Milk Of Magnesia PO DAILY PRN Constipation Nicotine 1 patch 07/26/17 08:00 07/26/17 08:26 Nicoderm Cq TD 1 patch DAILY [facility] Administration Trazodone HCl 50 mg 07/25/17 16:51 07/25/17 21:40 Desyrel PO 50 mg HS PRN Administration Insomnia Past Psychiatric History - Past Psychiatric History Pertinent Medical Hx (Current Medical&Sleep Prob, Allergies): Allergies Allergy/AdvReac Type Severity Reaction Status Date / Time No Known Allergies Allergy Verified 07/19/16 10:16 Divalproex [Depakote DR TAB] 1,500 mg PO BID 11/09/15 buPROPion [Wellbutrin] 75 mg PO DAILY 11/09/15 DSM 5 DX - Recommended/Plan of Treatment Projected ELOS: 7days Prognosis: fair Discharge Plan and Discharge Criteria: Pt will be not depressed or manic, will be more hopeful, will be not psychotic or anxious, will be not having thoughts of harming self or others, will be tolerating medications well, will not have major side effects, will be able to function, will not pose threat to self or others. - Smoking Cessation Smoking Cessation Initiated: Yes
--- NOTE | 2017-07-26 22:06 | CP.PCM.CON ---
<Lex Ortiz - Last Filed: 07/26/17 22:25> History of Present Illness - History of Present Illness History of Present Illness: This is a 56 year old male with a past medical history of bipolar disorder who presents with suicidal ideation since Tuesday. The patient recently lost his job and was unable to pay his rent amongst other bills. The patient felt the stress getting unbearable by Tuesday and by Tuesday the patient had planned on going to the [facility] to [facility] off. The patient denies taking medications for his Bipolar disorder due to him moving from [facility] recently and not establishing care in [place]. The patient denies any chest pain, shortness of breath, nausea, vomiting, changes in vision, headaches, lightheadedness, dizziness, or any other complaints. PMD: None PMhx: Per HPI Medications: Denies Allergies: NKDA Famhx: Denies Socialhx: 30 year pack history. Former Drinker (2011). Former cocaine and user ( 2011) Review of Systems - Constitutional Constitutional: As Per HPI - EENT Eyes: As Per HPI. absent: Loss of Vision Ears: As Per HPI Nose/Mouth/Throat: As Per HPI - Cardiovascular Cardiovascular: As Per HPI - Respiratory Respiratory: absent: As Per HPI - Gastrointestinal Gastrointestinal: As Per HPI - Genitourinary Genitourinary: As Per HPI - Musculoskeletal Musculoskeletal: As Per HPI - Integumentary Integumentary: As Per HPI - Neurological Neurological: As Per HPI - Psychiatric Psychiatric: As Per HPI - Endocrine Endocrine: As Per HPI Past Patient History - Infectious Disease Hx of Infectious Diseases: None - Tetanus Immunizations Tetanus Immunization: Unknown - Past Social History Smoking Status: Light Smoker < 10 Cigarettes Daily - CARDIAC Hx Cardiac Disorders: No - PULMONARY Hx Respiratory Disorders: No - NEUROLOGICAL Hx Neurological Disorder: No - HEENT Hx HEENT Problems: No - RENAL Hx Chronic Kidney Disease: No - ENDOCRINE/METABOLIC Hx Endocrine Disorders: No - HEMATOLOGICAL/ONCOLOGICAL Hx Blood Disorders: No - INTEGUMENTARY Hx Dermatological Problems: No - MUSCULOSKELETAL/RHEUMATOLOGICAL Hx Musculoskeletal Disorders: No - GASTROINTESTINAL Hx Gastrointestinal Disorders: No - GENITOURINARY/GYNECOLOGICAL Hx Genitourinary Disorders: No - PSYCHIATRIC Hx Bipolar Disorder: Yes Hx Substance Use: Yes - SURGICAL HISTORY Hx Orthopedic Surgery: Yes - ANESTHESIA Hx Anesthesia: No Hx Anesthesia Reactions: No Hx Malignant Hyperthermia: No Meds Allergies/Adverse Reactions: Allergies Allergy/AdvReac Type Severity Reaction Status Date / Time No Known Allergies Allergy Verified 07/19/16 10:16 - Medications Medications: Current Medications Acetaminophen (Tylenol 325mg Tab) 650 mg PO Q4 PRN PRN Reason: Pain, Mild (1-3) Al Hydrox/Mg Hydrox/Simethicone (Maalox Plus 30 Ml) 30 ml PO DAILY PRN PRN Reason: Upset Stomach Bupropion HCl (Wellbutrin) 75 mg PO BID [facility] Last Admin: 07/26/17 16:59 Dose: 75 mg Divalproex Sodium (Depakote Dr(*Bid*)) 500 mg PO 0800,2200 [facility] Last Admin: 07/26/17 21:55 Dose: 500 mg Magnesium Hydroxide (Milk Of Magnesia) 30 ml PO DAILY PRN PRN Reason: Constipation Nicotine (Nicoderm Cq) 1 patch TD DAILY [facility] Last Admin: 07/26/17 08:26 Dose: 1 patch Trazodone HCl (Desyrel) 50 mg PO HS PRN PRN Reason: Insomnia Last Admin: 07/26/17 21:56 Dose: 50 mg Physical Exam - Head Exam Head Exam: ATRAUMATIC, NORMAL INSPECTION, NORMOCEPHALIC - Eye Exam Eye Exam: EOMI, Normal appearance, PERRL. absent: Periorbital tenderness, Scleral icterus Pupil Exam: NORMAL ACCOMODATION, PERRL - ENT Exam ENT Exam: Mucous Membranes Moist, Normal Exam - Neck Exam Neck exam: Positive for: Normal Inspection. Negative for: Lymphadenopathy, Tenderness - Respiratory Exam Respiratory Exam: Clear to Auscultation Bilateral, NORMAL BREATHING PATTERN. absent: Accessory Muscle Use, Chest Wall Tenderness - Cardiovascular Exam Cardiovascular Exam: REGULAR RHYTHM, RRR, +S1, +S2. absent: Rubs, Systolic Murmur - GI/Abdominal Exam GI & Abdominal Exam: Normal Bowel Sounds, Soft. absent: Firm, Mass, Pulsatile Mass, Rebound - Extremities Exam Extremities exam: Positive for: full ROM, normal inspection - Back Exam Back exam: NORMAL INSPECTION. absent: CVA tenderness (L), CVA tenderness (R), paraspinal tenderness - Neurological Exam Neurological exam: Alert, CN II-XII Intact, Normal Gait - Psychiatric Exam Psychiatric exam: Normal Affect, Normal Mood - Skin Skin Exam: Dry, Normal Color, Warm Results - Vital Signs Recent Vital Signs: Last Vital Signs Temp 98.3 F 07/26/17 07:00 Pulse 58 L 07/26/17 16:00 Resp 20 07/26/17 07:00 BP 122/75 07/26/17 16:00 Pulse Ox 97 07/25/17 14:25 - Labs Result Diagrams: 07/25/17 11:16 07/26/17 08:18 Labs: Laboratory Results - last 24 hr 07/26/17 07/26/17 07/26/17 08:15 08:15 08:15 Sodium Potassium Chloride Carbon Dioxide Anion Gap BUN Creatinine Est GFR ( Amer) Est GFR (Non-Af Amer) Random Glucose Calcium Total Bilirubin AST ALT Alkaline Phosphatase Total Protein Albumin Globulin Albumin/Globulin Ratio Triglycerides 273 H Cholesterol 165 LDL Cholesterol Direct 101 HDL Cholesterol 38 Free T4 1.22 TSH 3rd Generation 1.82 RPR Nonreactive Hepatitis A IgM Ab Hep Bs Antigen Hep B Core IgM Ab Hepatitis C Antibody 07/26/17 07/26/17 08:17 08:18 Sodium 144 Potassium 4.4 Chloride 104 Carbon Dioxide 28 Anion Gap 16 BUN 19 Creatinine 0.9 Est GFR ( Amer) > 60 Est GFR (Non-Af Amer) > 60 Random Glucose 160 H Calcium 9.8 Total Bilirubin 0.6 AST 54 ALT 92 H Alkaline Phosphatase 80 Total Protein 7.4 Albumin 4.5 Globulin 2.8 Albumin/Globulin Ratio 1.6 Triglycerides Cholesterol LDL Cholesterol Direct HDL Cholesterol Free T4 TSH 3rd Generation RPR Hepatitis A IgM Ab Negative Hep Bs Antigen Negative Hep B Core IgM Ab Negative Hepatitis C Antibody Negative Assessment & Plan - Assessment and Plan (Free Text) Assessment: This is a 56 year old male with a past medical history of bipolar disorder who came into the emergency department with suicidal ideation. Plan: 1. Bipolar disorder -Patient receptive t receiving medical treatment. -Will f/u rec's per Dr. rg. 2. Former cocaine abuse. -Patient has been sober for over 5 years. -Counseled patient on drug abuse and ways to avoid future abuse. Patient is normotensive, a-febrile,and no leukocytosis. Patient encouraged to establish care in [place]. Patient is medically cleared. Feel free to consult us again if needed. <Jose Nix - Last Filed: 07/27/17 08:24> Meds - Medications Medications: Current Medications Acetaminophen (Tylenol 325mg Tab) 650 mg PO Q4 PRN PRN Reason: Pain, Mild (1-3) Al Hydrox/Mg Hydrox/Simethicone (Maalox Plus 30 Ml) 30 ml PO DAILY PRN PRN Reason: Upset Stomach Bupropion HCl (Wellbutrin) 75 mg PO BID [facility] Last Admin: 07/26/17 16:59 Dose: 75 mg Divalproex Sodium (Depakote Dr(*Bid*)) 500 mg PO 0800,2200 [facility] Last Admin: 07/26/17 21:55 Dose: 500 mg Magnesium Hydroxide (Milk Of Magnesia) 30 ml PO DAILY PRN PRN Reason: Constipation Nicotine (Nicoderm Cq) 1 patch TD DAILY [facility] Last Admin: 07/26/17 08:26 Dose: 1 patch Trazodone HCl (Desyrel) 50 mg PO HS PRN PRN Reason: Insomnia Last Admin: 07/26/17 21:56 Dose: 50 mg Results - Vital Signs Recent Vital Signs: Last Vital Signs Temp 97.5 F L 07/27/17 07:05 Pulse 50 L 07/27/17 07:05 Resp 16 07/27/17 07:05 BP 111/51 L 07/27/17 07:05 Pulse Ox 97 07/25/17 14:25 - Labs Result Diagrams: 07/25/17 11:16 07/26/17 08:18 Labs: Laboratory Results - last 24 hr 07/26/17 07/26/17 07/26/17 08:15 08:15 08:15 Sodium Potassium Chloride Carbon Dioxide Anion Gap BUN Creatinine Est GFR ( Amer) Est GFR (Non-Af Amer) Random Glucose Calcium Total Bilirubin AST ALT Alkaline Phosphatase Total Protein Albumin Globulin Albumin/Globulin Ratio Triglycerides 273 H Cholesterol 165 LDL Cholesterol Direct 101 HDL Cholesterol 38 Free T4 1.22 TSH 3rd Generation 1.82 RPR Nonreactive Hepatitis A IgM Ab Hep Bs Antigen Hep B Core IgM Ab Hepatitis C Antibody 07/26/17 07/26/17 08:17 08:18 Sodium 144 Potassium 4.4 Chloride 104 Carbon Dioxide 28 Anion Gap 16 BUN 19 Creatinine 0.9 Est GFR ( Amer) > 60 Est GFR (Non-Af Amer) > 60 Random Glucose 160 H Calcium 9.8 Total Bilirubin 0.6 AST 54 ALT 92 H Alkaline Phosphatase 80 Total Protein 7.4 Albumin 4.5 Globulin 2.8 Albumin/Globulin Ratio 1.6 Triglycerides Cholesterol LDL Cholesterol Direct HDL Cholesterol Free T4 TSH 3rd Generation RPR Hepatitis A IgM Ab Negative Hep Bs Antigen Negative Hep B Core IgM Ab Negative Hepatitis C Antibody Negative Attending/Attestation - Attestation I have personally seen and examined this patient.: Yes I have fully participated in the care of the patient.: Yes I have reviewed all pertinent clinical information: Yes Notes (Text): 07/26/17 MEDICAL CONSULTATION 56 year old male with past medical history of bipolar disorder who presented with depressed mood and suicidal ideation. Continue with management as per psychiatrist. Patient is currently on welbutrin and depakote. Labs reviewed which initially showed mildly elevated BUN/Cr, however repeat bmp is normal. ALT was also mildly elevated. Hepatitis panel is negative. Thank you Dr. Cedeno for allowing us to participate in the care of this patient. Please re-consult as needed. Jose Nix MD Hospitalist.
[2017-07-27] MEDS: Divalproex 500 mg DR(BID formulation) PO SCH ×2 (08:20→22:14)
--- NOTE | 2017-07-27 14:42 | PCM.PYCHPN ---
Psychiatric Progress Note - Psychiatric Progress Note Patient seen today, length of contact: 30min Patient Chief Complaint: "I am depressed, but have some hopes" Diagnostic Results: 07/25/17 11:16 07/26/17 08:18 Lab Results 07/26/17 08:18: Sodium 144, Potassium 4.4, Chloride 104, Carbon Dioxide 28, Anion Gap 16, BUN 19, Creatinine 0.9, Est GFR ( Amer) > 60, Est GFR (Non- Af Amer) > 60, Random Glucose 160 H, Calcium 9.8, Total Bilirubin 0.6, AST 54, ALT 92 H, Alkaline Phosphatase 80, Total Protein 7.4, Albumin 4.5, Globulin 2.8 , Albumin/Globulin Ratio 1.6 07/26/17 08:17: Hepatitis A IgM Ab Negative, Hep Bs Antigen Negative, Hep B Core IgM Ab Negative, Hepatitis C Antibody Negative 07/26/17 08:15: RPR Nonreactive 07/26/17 08:15: Free T4 1.22, TSH 3rd Generation 1.82 07/26/17 08:15: Triglycerides 273 H, Cholesterol 165, LDL Cholesterol Direct 101 , HDL Cholesterol 38 07/25/17 11:56: Urine Opiates Screen Negative, Urine Methadone Screen Negative, Ur Barbiturates Screen Negative, Ur Phencyclidine Scrn Negative, Ur Amphetamines Screen Negative, U Benzodiazepines Scrn Negative, U Oth Cocaine Metabols Negative, U Cannabinoids Screen Negative 07/25/17 11:56: Urine Color Yellow, Urine Appearance Clear, Urine pH 6.0, Ur Specific [place] 1.010, Urine Protein Negative, Urine Glucose (UA) Negative, Urine Ketones Negative, Urine Blood Negative, Urine Nitrate Negative, Urine Bilirubin Negative, Urine Urobilinogen 0.2, Ur Leukocyte Esterase Negative 07/25/17 11:16: Alcohol, Quantitative < 10 07/25/17 11:16: Salicylates < 1 L, Acetaminophen < 10.0 L 07/25/17 11:16: Sodium 144, Potassium 4.3, Chloride 104, Carbon Dioxide 28, Anion Gap 16, BUN 23 H, Creatinine 1.5 H, Est GFR ( Amer) 59, Est GFR ( Non-Af Amer) 49, Random Glucose 127 H, Calcium 9.8, Total Bilirubin 0.5, AST 57 , ALT 91 H, Alkaline Phosphatase 85, Total Protein 7.4, Albumin 4.8, Globulin 2.6, Albumin/Globulin Ratio 1.8 07/25/17 11:16: WBC 9.6, RBC 5.59, Hgb 15.4, Hct 45.1, MCV 80.7, MCH 27.5, MCHC 34.1, RDW 13.9, Plt Count 245, MPV 11.4 H, Gran % 61.8, Lymph % (Auto) 28.5, [place] % (Auto) 7.2 H, Eos % (Auto) 2.1, Baso % (Auto) 0.4, Gran # 5.91, Lymph # 2.7, [place] # 0.7 H, Eos # 0.2, Baso # 0.04 Vital Signs Temp Pulse Resp BP Pulse Ox 07/27/17 07:05 97.5 F L 50 L 16 111/51 L 07/26/17 16:00 58 L 122/75 07/26/17 07:00 98.3 F 60 20 142/69 07/25/17 16:50 18 07/25/17 14:25 58 L 16 125/68 97 07/25/17 10:59 98.4 F 67 18 150/80 97 DSM 5 Symptoms Update: Shortly pt is 56yo male with self reported h/o bipolar disorder, one previous psychiatric admission in 1998, long h/o polysubstance abuse and dependence, currently in long and sustained remission since 2011, h/o one suicidal attempt in 1998, brought himself to the hospital looking for help for worsening of depression for the past four weeks, feeling of hopelessness, helplessness, inability to function, suicidal ideation and a plan to jump off the [place] or walk into the traffic. pt was seen at tx team meeting, acceptable personal hygiene. pt said he tolerates meds well, no side effects. AIMS 0, no EPS. pt said he slept "restless", but does not want meds adjustment. pt said he does not want to put pressure on his family letting them know that he needs financial support from them. pt still depressed, but more hopeful for the future. MSE:pt was alert/oriented/pleasant and cooperative, socially appropriate, good hygiene, fund of knowledge is good. 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 Pt looks stated age, there is no psychomotor agitation/ retardation, speech was: normal rate/quality/quantity, eye contact: good, mood described: "depressed but more hopeful", affect: constricted and mood congruent , thought process: coherent and goal directed, thought content: pt denied SI/ HI , pt denied v/a/t hallucinations, denied paranoid ideation, pt does not appeared to be psychotic, fair insight/judgment, impulses are well controlled. Impression: as per h/o most likely Bipolar II, most recent episode is depressed r/o MDD r/o adjustment disorder polysubstance abuse in long and sustained remission. Treatment plan: Milieu/structure/supportive therapy Medical consult appreciated, see medical team note for more detailed info SW consultation for discharge plan and social issues Med management wellbutrin 75mg po bid for depression depakote 500mg po bid for mood stabilization trazodone 50mg po hs for insomnia and depression Family involvement Follow up on labs Will monitor closely Pt was educated about risk/benefits and alternatives of medications, coping strategies (safety plan, suicide prevention), relapse prevention, importance of follow up with psychiatrist and therapist, stay away from drugs/alcohol/smoking Medication Change: Yes (started yesterday) Medical Record Reviewed: Yes Consults ordered or reviewed: medical consult appreciated Mental Status Examination - Homicidal Ideation Homicidal Ideation: No Goal/Treatment Plan - Goal/Treatment Plan Need for Continued Stay: Remain at risks for inpatient hospitalization, Severe depression anxiety, Discharge may exacerbated symptoms, Severe functional impairment Estimated Date of D/C: 07/29/17
[2017-07-27] MEDS: Alum-Mag Hydrox-Simethicone Susp (30 mL) PO PRN (18:33)
[2017-07-28 06:52] VITALS: RESP 20; TEMP 98.2
[2017-07-28] MEDS: Divalproex 500 mg DR(BID formulation) PO SCH ×2 (08:30→21:57)
[2017-07-28] MEDS: Alum-Mag Hydrox-Simethicone Susp (30 mL) PO PRN (14:25)
--- NOTE | 2017-07-28 15:08 | PCM.PYCHPN ---
Psychiatric Progress Note - Psychiatric Progress Note Patient seen today, length of contact: 30min Patient Chief Complaint: "I feel much better" Diagnostic Results: 07/25/17 11:16 07/26/17 08:18 Lab Results 07/26/17 08:18: Sodium 144, Potassium 4.4, Chloride 104, Carbon Dioxide 28, Anion Gap 16, BUN 19, Creatinine 0.9, Est GFR ( Amer) > 60, Est GFR (Non- Af Amer) > 60, Random Glucose 160 H, Calcium 9.8, Total Bilirubin 0.6, AST 54, ALT 92 H, Alkaline Phosphatase 80, Total Protein 7.4, Albumin 4.5, Globulin 2.8 , Albumin/Globulin Ratio 1.6 07/26/17 08:17: Hepatitis A IgM Ab Negative, Hep Bs Antigen Negative, Hep B Core IgM Ab Negative, Hepatitis C Antibody Negative 07/26/17 08:15: RPR Nonreactive 07/26/17 08:15: Free T4 1.22, TSH 3rd Generation 1.82 07/26/17 08:15: Triglycerides 273 H, Cholesterol 165, LDL Cholesterol Direct 101 , HDL Cholesterol 38 07/25/17 11:56: Urine Opiates Screen Negative, Urine Methadone Screen Negative, Ur Barbiturates Screen Negative, Ur Phencyclidine Scrn Negative, Ur Amphetamines Screen Negative, U Benzodiazepines Scrn Negative, U Oth Cocaine Metabols Negative, U Cannabinoids Screen Negative 07/25/17 11:56: Urine Color Yellow, Urine Appearance Clear, Urine pH 6.0, Ur Specific [place] 1.010, Urine Protein Negative, Urine Glucose (UA) Negative, Urine Ketones Negative, Urine Blood Negative, Urine Nitrate Negative, Urine Bilirubin Negative, Urine Urobilinogen 0.2, Ur Leukocyte Esterase Negative 07/25/17 11:16: Alcohol, Quantitative < 10 07/25/17 11:16: Salicylates < 1 L, Acetaminophen < 10.0 L 07/25/17 11:16: Sodium 144, Potassium 4.3, Chloride 104, Carbon Dioxide 28, Anion Gap 16, BUN 23 H, Creatinine 1.5 H, Est GFR ( Amer) 59, Est GFR ( Non-Af Amer) 49, Random Glucose 127 H, Calcium 9.8, Total Bilirubin 0.5, AST 57 , ALT 91 H, Alkaline Phosphatase 85, Total Protein 7.4, Albumin 4.8, Globulin 2.6, Albumin/Globulin Ratio 1.8 07/25/17 11:16: WBC 9.6, RBC 5.59, Hgb 15.4, Hct 45.1, MCV 80.7, MCH 27.5, MCHC 34.1, RDW 13.9, Plt Count 245, MPV 11.4 H, Gran % 61.8, Lymph % (Auto) 28.5, [place] % (Auto) 7.2 H, Eos % (Auto) 2.1, Baso % (Auto) 0.4, Gran # 5.91, Lymph # 2.7, [place] # 0.7 H, Eos # 0.2, Baso # 0.04 Vital Signs Temp Pulse Resp BP Pulse Ox 07/27/17 07:05 97.5 F L 50 L 16 111/51 L 07/26/17 16:00 58 L 122/75 07/26/17 07:00 98.3 F 60 20 142/69 07/25/17 16:50 18 07/25/17 14:25 58 L 16 125/68 97 07/25/17 10:59 98.4 F 67 18 150/80 97 Temp Pulse Resp BP Pulse Ox 98.2 F 53 L 20 129/85 97 07/28/17 07:00 07/28/17 07:00 07/28/17 07:00 07/28/17 07:00 07/25/17 14:25 DSM 5 Symptoms Update: Shortly pt is 56yo male with self reported h/o bipolar disorder, one previous psychiatric admission in 1998, long h/o polysubstance abuse and dependence, currently in long and sustained remission since 2011, h/o one suicidal attempt in 1998, brought himself to the hospital looking for help for worsening of depression for the past four weeks, feeling of hopelessness, helplessness, inability to function, suicidal ideation and a plan to jump off [place] or walk into the traffic. pt was seen at tx team meeting room, acceptable personal hygiene. pt said he tolerates meds well, no side effects. AIMS 0, no EPS. pt said he slept "much better, I feel better as well". pt's family willing to help pt to pay his rent, pt said "it is huge relief", pt now wants to "put my life together", asked to be discharged tomorrow. Pt is more hopeful for the future. MSE:pt was alert/oriented/pleasant and cooperative, socially appropriate, good hygiene, fund of knowledge is good. 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 Pt looks stated age, there is no psychomotor agitation/ retardation, speech was: normal rate/quality/quantity, eye contact: good, mood described: "I feel much better", affect: constricted and mood congruent, thought process: coherent and goal directed, thought content: pt denied SI/ HI, pt denied v/a/t hallucinations, denied paranoid ideation, pt does not appeared to be psychotic, fair insight/judgment, impulses are well controlled. Impression: as per h/o most likely Bipolar II, most recent episode is depressed r/o MDD r/o adjustment disorder polysubstance abuse in long and sustained remission. Treatment plan: Milieu/structure/supportive therapy Medical consult appreciated, see medical team note for more detailed info SW consultation for discharge plan and social issues Med management wellbutrin 75mg po bid for depression depakote 500mg po bid for mood stabilization trazodone 50mg po hs for insomnia and depression Family involvement Follow up on labs Will monitor closely Pt was educated about risk/benefits and alternatives of medications, coping strategies (safety plan, suicide prevention), relapse prevention, importance of follow up with psychiatrist and therapist, stay away from drugs/alcohol/smoking Medication Change: No Medical Record Reviewed: Yes Consults ordered or reviewed: medical consult appreciated Mental Status Examination - Homicidal Ideation Homicidal Ideation: No Goal/Treatment Plan - Goal/Treatment Plan Need for Continued Stay: Remain at risks for inpatient hospitalization, Severe depression anxiety, Discharge may exacerbated symptoms, Severe functional impairment Estimated Date of D/C: 07/29/17
[2017-07-28 16:57] VITALS: PULSE 63
[2017-07-28 16:59] VITALS: BP 158/92
[2017-07-29] MEDS: Divalproex 500 mg DR(BID formulation) PO SCH (08:19)
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
== END 2017-07-29 13:54 | disposition home or self-care (01) | DRG 885 ==
LOC: ED 10:44 → ERH 15:27 → PSYC 16:30
PROVIDERS: ADMIT Psychiatry & Neurology Psychiatry; ATTEND Psychiatry & Neurology Psychiatry
DX: F31.81 Bipolar II disorder (principal); R45.851 Suicidal ideations; F19.20 Other psychoactive substance dependence, uncomplicated; F17.210 Nicotine dependence, cigarettes, uncomplicated; G47.00 Insomnia, unspecified; Z79.899 Other long term (current) drug therapy; Z91.5 Personal history of self-harm; F43.20 Adjustment disorder, unspecified

== ENCOUNTER 2019-01-10 10:20 | Emergency (ER) | payer MEDICAID, OTHER ==
[2019-01-10 10:20] VITALS: BMI 32.3
[2019-01-10 10:49] VITALS: RESP 19
[2019-01-10] MEDS ORDERED: Sodium Chloride 0.9% 1,000 ML IV STA (10:59)
--- NOTE | 2019-01-10 11:00 | ED PDOC ---
Arrival/HPI - General Chief Complaint: Abdominal Pain Time Seen by Provider: 01/10/19 10:21 - History of Present Illness Narrative History of Present Illness (Text): 01/10/19 13:28 58 y/o male with PMH of bipolar disorder presents to the ED c/o left sided abdominal pain x 1 day. Pt traveled from [place] 2 days ago, and ate at a buffet. Yesterday, he awoke with left sided abdominal pain and brown, nonbloody, watery diarrhea. Pain is sharp, intermittent, and has worsened today, with associated 2 episodes of nonbloody vomiting today, prompting visit to ED. Tolerating PO per baseline. No sick contacts or travel outside of the country. Denies fevers, chills, back pain, urinary symptoms, testicular pain/swelling, chest pain, SOB, cough, diarrhea, melena, hematochezia, hematemesis, or any other associated symptoms. Past Medical History - Infectious Disease Hx of Infectious Diseases: None - Tetanus Immunization Tetanus Immunization: Unknown - Cardiac Hx Cardiac Disorders: No - Pulmonary Hx Respiratory Disorders: No - Neurological Hx Neurological Disorder: No - HEENT Hx HEENT Disorder: No - Renal Hx Renal Disorder: No - Endocrine/Metabolic Hx Endocrine Disorders: No - Hematological/Oncological Hx Blood Disorders: No - Integumentary Hx Dermatological Disorder: No - Musculoskeletal/Rheumatological Hx Musculoskeletal Disorders: Yes Hx Fractures: Yes - Gastrointestinal Hx Gastrointestinal Disorders: No - Genitourinary/Gynecological Hx Genitourinary Disorders: No - Psychiatric Hx Psychophysiologic Disorder: Yes Hx Bipolar Disorder: Yes Hx Substance Use: Yes (CANNABIS) - Surgical History Hx Orthopedic Surgery: Yes - Anesthesia Hx Anesthesia: No Hx Anesthesia Reactions: No Hx Malignant Hyperthermia: No Family/Social History - Physician Review Nursing Documentation Reviewed: Yes Family/Social History: No Known Family HX Smoking Status: Light Smoker < 10 Cigarettes Daily Hx Alcohol Use: Yes Hx Substance Use: Yes (CANNABIS) Allergies/Home Meds Allergies/Adverse Reactions: Allergies No Known Allergies Allergy (Verified 01/10/19 10:43) Review of Systems - Physician Review All systems were reviewed & negative as marked: Yes - Review of Systems Constitutional: Normal. absent: Fatigue, Fevers Eyes: Normal. absent: Vision Changes, Photophobia ENT: Normal. absent: Sore Throat, Sinus Congestion Respiratory: Normal. absent: SOB, Cough Cardiovascular: Normal. absent: Chest Pain, Palpitations, Syncope Gastrointestinal: Abdominal Pain, Diarrhea, Nausea, Vomiting. absent: Appetite Changes Genitourinary Male: Normal. absent: Dysuria, Frequency, Hematuria Musculoskeletal: Normal. absent: Arthralgias, Back Pain, Neck Pain Skin: Normal. absent: Rash, Pruritis Neurological: Normal. absent: Headache, Dizziness Endocrine: Normal Hemo/Lymphatic: Normal Psychiatric: Normal Physical Exam Vital Signs Reviewed: Yes Vital Signs Temp Pulse Resp BP Pulse Ox 01/10/19 10:44 99.0 F 54 L 19 148/83 98 Temperature: Afebrile Blood Pressure: Normal Pulse: Bradycardic Respiratory Rate: Normal Appearance: Positive for: Well-Appearing, Non-Toxic, Comfortable Pain Distress: None Mental Status: Positive for: Alert and Oriented X 3 - Systems Exam Head: Present: Atraumatic, Normocephalic Pupils: Present: PERRL Extroacular Muscles: Present: EOMI Conjunctiva: Present: Normal Ears: Present: Normal, NORMAL TM, Normal Canal Mouth: Present: Moist Mucous Membranes Pharnyx: Present: Normal. No: ERYTHEMA, EXUDATE, TONSILS ENLARGED Nose (External): Present: Atraumatic Nose (Internal): Present: Normal Inspection Neck: Present: Normal Range of Motion. No: Meningeal Signs Respiratory/Chest: Present: Clear to Auscultation, Good Air Exchange. No: Respiratory Distress, Accessory Muscle Use Cardiovascular: Present: Regular Rate and Rhythm, Normal S1, S2, Peripheal Pulses Present. No: Murmurs Abdomen: Present: Tenderness (mild LLQ, LUQ), Normal Bowel Sounds. No: Distention, Peritoneal Signs, Rebound, Guarding Back: Present: Normal Inspection. No: CVA Tenderness, Midline Tenderness, Paraspinal Tenderness Upper Extremity: Present: Normal Inspection, Normal ROM, NORMAL PULSES, Neurovascularly Intact, Capillary Refill < 2s. No: Cyanosis, Edema, Temperature Abnormalties Lower Extremity: Present: Normal Inspection, NORMAL PULSES, Normal ROM, Neurovascularly Intact, Capillary Refill < 2 s. No: Edema, CALF TENDERNESS, Tenderness, Swelling, Temperature Abnormalties Neurological: Present: GCS=15, CN II-XII Intact, Speech Normal, Motor Func Grossly Intact, Normal Sensory Function, Gait Normal Skin: Present: Warm, Dry, Normal Color. No: Rashes Psychiatric: Present: Alert, Oriented x 3, Normal Insight, Normal Concentration, Normal Affect, Normal Mood Medical Decision Making ED Course and Treatment: Initial Plan: * CBC, CMP * Troponin * Coags * Lipase * EKG * CXR * CT Abd/Pelvis with IV contrast 13:36 Patient reports improvement in symptoms with medication. Bloodwork reviewed, unremarkable CXR shows no active disease EKG remarkable for sinus bradycardia, troponin negative 14:20 CT shows multiple intra-abdominal findings, most significant of which is acute appendicitis. Will page surgical scheduler. 14:35 Spoke with surgical scheduler, who will evaluate pt in ED. 15:[address] Galeano to come evaluate pt in ED. 17:00 Patient unwilling to wait for surgical attending. Asking to sign out AMA. Surgic al resident notified. Patient given copies of CT report. Advised to followup with GI, PMD, general s urgery, and cardiology. Patient verbalized understanding. Discharged with pepcid prescription and advised to take OTC miralax for constipation. 17:20 The patient is choosing to leave against medical advice. I have personally explained to the patient that choosing to do so may result in permanent bodily harm, disability, or . I have discussed at great length that without further evaluation and monitoring there may be unforeseen circumstances and/or deterioration causing permanent bodily harm or as a result of their choice. The patient is alert, oriented, and shows the mental capacity to make clear decisions regarding the patients health care at this time. The patient continues to wish to leave against medical advice. In light of the patients decision to leave against medical advice, follow-up has been arranged and the patient is aware of the importance to following up as instructed. The patient has been advised that they should return to the emergency room immediately if they change their mind at any time, or if their condition begins to change or worsen in any way. - Lab Interpretations Lab Results: 01/10/19 11:24 01/10/19 11:24 Lab Results 01/10/19 11:24: Sodium 139, Potassium 4.0, Chloride 104, Carbon Dioxide 27, Anion Gap 12, BUN 27 H, Creatinine 0.8, Est GFR ( Amer) > 60, Est GFR (Non-Af Amer) > 60, Random Glucose 99, Calcium 9.4, Magnesium 2.0, Total Bilirubin 0.3, AST 39, ALT 28, Alkaline Phosphatase 63, Troponin I < 0.01, Total Protein 6.9, Albumin 4.3, Globulin 2.7, Albumin/Globulin Ratio 1.6, Lipase 199 01/10/19 11:24: Urine Color Yellow, Urine Appearance Clear, Urine pH 6.5, Ur Specific [place] 1.015, Urine Protein Negative, Urine Glucose (UA) Negative, Urine Ketones Negative, Urine Blood Negative, Urine Nitrate Negative, Urine Bilirubin Negative, Urine Urobilinogen 0.2, Ur Leukocyte Esterase Negative 01/10/19 11:24: PT 13.0 H, INR 1.15, APTT 35.1 01/10/19 11:24: WBC 7.7, RBC 4.81, Hgb 12.7 L D, Hct 39.2 L, MCV 81.5, MCH 26.4, MCHC 32.4, RDW 14.7 H, Plt Count 242, MPV 10.9, Neut % (Auto) 67.6, Lymph % (Auto) 23.4, [place] % (Auto) 7.0 H, Eos % (Auto) 1.6, Baso % (Auto) 0.4, Lymph # (Auto) 1.8, [place] # (Auto) 0.5, Eos # (Auto) 0.1, Baso # (Auto) 0.03, Absolute Neuts (auto) 5.18 I have reviewed the lab results: Yes - RAD Interpretation Narrative RAD Interpretations (Text): 01/10/19 13:49 CXR: FINDINGS: LUNGS: No active pulmonary disease. PLEURA: No significant pleural effusion identified, no pneumothorax apparent. CARDIOVASCULAR: No atherosclerotic calcification present No radiographic findings to suggest acute or significant cardiovascular disease. OSSEOUS STRUCTURES: No significant abnormalities. VISUALIZED UPPER ABDOMEN: Normal. OTHER FINDINGS: None. IMPRESSION: No active disease. No significant interval change compared to the prior examination(s). CT Abd/Pelvis: FINDINGS: LOWER THORAX: Heart size is mildly enlarged. No significant pericardial effusion. There is a small hiatal hernia with thick-walled appearance of the esophagus likely due to protrusion gastric mucosa however esophagitis or other intrinsic/invasive wall lesion including but not limited to esophageal carcinoma not excluded. Consider follow-up endoscopy if indicated further evaluation. Minor passive/dependent type atelectasis seen both posterior sulci. No focal consolidation. No evidence of effusion or basilar pneumothorax. LIVER: Liver exhibits relatively normal size measuring nearly 18 cm in CC dimension. Mild diffuse fatty hepatic infiltration. There is a small approximately 11 mm x 7 mm elliptical shaped low-attenuation lesion inferior aspect right lobe liver too small to characterize though Hounsfield units ranging between 11 and 20 suggest cystic lesion. Recommend follow-up of CT scan implying liver protocol recommended to assess stability. GALLBLADDER AND BILE DUCTS: Gallbladder is physiologically distended. No evidence of intraluminal gallbladder calculi. PANCREAS: Pancreas appears slightly atrophic and fatty replaced. No obvious pancreatic masses, collections or calcifications. No significant pancreatic ductal dilatation. SPLEEN: Spleen exhibits normal size and attenuation pattern without mass collection or calcification ADRENALS: No adrenal lesions. KIDNEYS AND URETERS: Kidneys demonstrate relatively symmetric nephrograms. No evidence of ne phrolithiasis or hydronephrosis. BLADDER: Urinary bladder is incompletely distended which in part accounts for thick- walled appearance. Muscular hypertrophy presumably contributes. Correlation with urinalysis recommended to exclude cystitis. Note that the prostate gland does appear enlarged and encroaches into the floor of the urinary bladder. Prostate gland measures approximately 5 cm in transverse dimension. Findings likely due to BPH however correlation with PSA recommended. REPRODUCTIVE: As above. Seminal vesicles unremarkable. APPENDIX: The appendix measures up to nearly 6 mm in greatest transverse dimension with minimal proximal wall thickening. However no evidence of infiltration changes seen in the adjacent mesentery. These findings are nonspecific an equivocal for acute appendicitis. Clinical correlation with history, physical exam and laboratory values recommended as the possibility of a very early acute appendicitis cannot excluded based on this study BOWEL: Evaluation of the bowel slightly limited due to lack of contrast material. The stomach is incompletely distended with thick-walled appearance.. There are several minimally distended air and fluid-filled loops of small bowel in the upper abdomen suggesting mild ileus. No evidence of mechanical small bowel obstruction. Moderately large amount of stool seen throughout the colon consistent with fecal retention/constipation. PERITONEUM: Unremarkable. No fluid collection. No free air. Small fat containing umbilical hernia. LYMPH NODES: Unremarkable. No enlarged lymph nodes. VASCULATURE: Unremarkable. No aortic aneurysm. Minimal aortic atherosclerotic calcification or mural plaque present. BONES: Mild multilevel degenerative spondylosis of the lower thoracic and lumbar spine. OTHER FINDINGS: None. IMPRESSION: Low-attenuation lesion inferior aspect right lobe liver which may represent a c yst however follow-up at interval could be performed to assess stability as detailed above. Findings suggest mild ileus. Findings consistent with constipation. There are a few scattered colonic diver ticula however no radiographic evidence of diverticulitis. The appendix measures up to 6 mm with very slight proximal wall thickening however no evidence of periappendiceal inflammatory changes. Findings are equivocal for acute appendicitis. Clinical correlation with history, physical exam and laboratory values recommended as the possibility of a very early mild acute appendicitis not excluded. Small hiatal hernia with mild wall thickening of the distal esophagus likely due to protrusion of gastric mucosa however esophagitis or other intrinsic/invasive wall lesion not excluded. Clinical correlation recommended as above. Investor Relations Associate: Radiologist - EKG Interpretation EKG Interpretation (Text): 01/10/19 13:55 Rate 51; Sinus bradycardia; Normal intervals; No STEMI, nonspecific ST/T wave changes Interpreted by ED Physician: Yes Type: 12 lead EKG Disposition/Present on Arrival - Present on Arrival Any Indicators Present on Arrival: No History of DVT/PE: No History of Uncontrolled Diabetes: No Urinary Catheter: No History of Decub. Ulcer: No History Surgical Site Infection Following: None - Disposition Have Diagnosis and Disposition been Completed?: No Diagnosis: Left against medical advice, Bradycardia, Abdominal pain Disposition: AGAINST MEDICAL ADVICE Disposition Time: 17:15 Condition: GUARDED Discharge Instructions (ExitCare): Acute Abdomen (Belly Pain), Adult (DC), Leaving Against Medical Advice Additional Instructions: Pepcid every 12 hours as needed for indigestion Miralax over the counter daily as needed for constipation Followup with primary doctor within 2 days Followup with gastroenterology within 2 days Followup with general surgery within 2 days Followup with cardiology within 2 days Return to ER with any new/worsening symptoms Prescriptions: Famotidine [Pepcid] 20 mg PO Q12 PRN #14 tab PRN Reason: Indigestion Referrals: [facility] [place]] - Follow up with primary Olvin Sherman MD [Staff Provider] - Follow up with primary Abrahan Escobar MD [Staff Provider] - Follow up with primary Brown Tom MD [Staff Provider] - Follow up with primary Charito Bonilla MD [Medical Doctor] - Follow up with primary Forms: [employer] ([place]i), WORK NOTE
--- NOTE | 2019-01-10 11:35 | RAD ---
Date of service: 01/10/2019 HISTORY: Abdominal pain. COMPARISON: 07/25/2017. FINDINGS: LUNGS: No active pulmonary disease. PLEURA: No significant pleural effusion identified, no pneumothorax apparent. CARDIOVASCULAR: No atherosclerotic calcification present No radiographic findings to suggest acute or significant cardiovascular disease. OSSEOUS STRUCTURES: No significant abnormalities. VISUALIZED UPPER ABDOMEN: Normal. OTHER FINDINGS: None. IMPRESSION: No active disease. No significant interval change compared to the prior examination(s).
[2019-01-10 12:03] LABS: BASO # 0.03 K/mm3 (0.0-2.0); BASO % 0.4 % (0.0-3.0); EOS # 0.1 (0.0-0.7); EOS % 1.6 % (1.5-5.0); HEMOGLOBIN 12.7 g/dL (14.0-18.0); LYMPH # 1.8 (1.2-3.4); LYMPH % 23.4 % (22.0-35.0); MEAN CELL VOLUME 81.5 fl (80.0-105.0); MEAN CORPUSCULAR HEMOGLOBIN 26.4 pg (25.0-35.0); MEAN CORPUSCULAR HGB CONC 32.4 g/dl (31.0-37.0); MEAN PLATELET VOLUME 10.9 fl (7.0-11.0); MONO # 0.5 (0.1-0.6); PH,URINE 6.5 (4.7-8.0); RBC 4.81 10^6/uL (3.5-6.1); RED CELL DISTRIBUTION WIDTH 14.7 % (11.5-14.5); URINE BILIRUBIN NEGATIVE (NEGATIVE); URINE BLOOD NEGATIVE (NEGATIVE); URINE GLUCOSE (UA) NEGATIVE (NEGATIVE); URINE LEUKOCYTE ESTERASE NEGATIVE Leu/uL (NEGATIVE); URINE PROTEIN NEGATIVE mg/dL (<30 mg/dL); URINE UROBILINOGEN 0.2 E.U./dL (<1 E.U./dL); WHITE BLOOD COUNT 7.7 10^3/uL (4.5-11.0)
[2019-01-10 12:13] LABS: URINE APPEARANCE CLEAR (CLEAR); URINE COLOR YELLOW (YELLOW)
[2019-01-10 12:14] LABS: ALB/GLOB RATIO 1.6 (1.1-1.8); ALBUMIN 4.3 g/dL (3.0-4.8); ALT/SGPT 28 U/L (7-56); AST/SGOT 39 U/L (17-59); BLOOD UREA NITROGEN 27 mg/dL (7-21); CALCIUM 9.4 mg/dL (8.4-10.5); GFR NON-AFRICAN AMERICAN > 60; LIPASE 199 U/L (23-300)
[2019-01-10 12:17] LABS: INR 1.15; PARTIAL THROMBOPLASTIN TIME 35.1 Seconds (26.9-38.3)
[2019-01-10 12:25] LABS: TROPONIN I < 0.01 ng/mL
[2019-01-10 13:08] VITALS: TEMP 98.9; O2SAT 99
--- NOTE | 2019-01-10 14:16 | CT ---
Date of service: 01/10/2019 PROCEDURE: CT abdomen pelvis HISTORY: Short left-sided abdominal pain COMPARISON: No prior study available comparison TECHNIQUE: Contiguous axial images of the abdomen and pelvis performed following intravenous injection of approximately 150 cc Omnipaque 350 contrast material. Additional 2D sagittal and coronal reformats generated. Radiation dose: Total exam DLP = 960.41 mGy-cm. This CT exam was performed using one or more of the following dose reduction techniques: Automated exposure control, adjustment of the mA and/or kV according to patient size, and/or use of iterative reconstruction technique. FINDINGS: LOWER THORAX: Heart size is mildly enlarged. No significant pericardial effusion. There is a small hiatal hernia with thick-walled appearance of the esophagus likely due to protrusion gastric mucosa however esophagitis or other intrinsic/invasive wall lesion including but not limited to esophageal carcinoma not excluded. Consider follow-up endoscopy if indicated further evaluation. Minor passive/dependent type atelectasis seen both posterior sulci. No focal consolidation. No evidence of effusion or basilar pneumothorax. LIVER: Liver exhibits relatively normal size measuring nearly 18 cm in CC dimension. Mild diffuse fatty hepatic infiltration. There is a small approximately 11 mm x 7 mm elliptical shaped low-attenuation lesion inferior aspect right lobe liver too small to characterize though Hounsfield units ranging between 11 and 20 suggest cystic lesion. Recommend follow-up of CT scan implying liver protocol recommended to assess stability. GALLBLADDER AND BILE DUCTS: Gallbladder is physiologically distended. No evidence of intraluminal gallbladder calculi. PANCREAS: Pancreas appears slightly atrophic and fatty replaced. No obvious pancreatic masses, collections or calcifications. No significant pancreatic ductal dilatation. SPLEEN: Spleen exhibits normal size and attenuation pattern without mass collection or calcification ADRENALS: No adrenal lesions. KIDNEYS AND URETERS: Kidneys demonstrate relatively symmetric nephrograms. No evidence of nephrolithiasis or hydronephrosis. BLADDER: Urinary bladder is incompletely distended which in part accounts for thick-walled appearance. Muscular hypertrophy presumably contributes. Correlation with urinalysis recommended to exclude cystitis. Note that the prostate gland does appear enlarged and encroaches into the floor of the urinary bladder. Prostate gland measures approximately 5 cm in transverse dimension. Findings likely due to BPH however correlation with PSA recommended. REPRODUCTIVE: As above. Seminal vesicles unremarkable. APPENDIX: The appendix measures up to nearly 6 mm in greatest transverse dimension with minimal proximal wall thickening. However no evidence of infiltration changes seen in the adjacent mesentery. These findings are nonspecific an equivocal for acute appendicitis. Clinical correlation with history, physical exam and laboratory values recommended as the possibility of a very early acute appendicitis cannot excluded based on this study BOWEL: Evaluation of the bowel slightly limited due to lack of contrast material. The stomach is incompletely distended with thick-walled appearance.. There are several minimally distended air and fluid-filled loops of small bowel in the upper abdomen suggesting mild ileus. No evidence of mechanical small bowel obstruction. Moderately large amount of stool seen throughout the colon consistent with fecal retention/constipation. PERITONEUM: Unremarkable. No fluid collection. No free air. Small fat containing umbilical hernia. LYMPH NODES: Unremarkable. No enlarged lymph nodes. VASCULATURE: Unremarkable. No aortic aneurysm. Minimal aortic atherosclerotic calcification or mural plaque present. BONES: Mild multilevel degenerative spondylosis of the lower thoracic and lumbar spine. OTHER FINDINGS: None. IMPRESSION: Low-attenuation lesion inferior aspect right lobe liver which may represent a cyst however follow-up at interval could be performed to assess stability as detailed above. Findings suggest mild ileus. Findings consistent with constipation. There are a few scattered colonic diverticula however no radiographic evidence of diverticulitis. The appendix measures up to 6 mm with very slight proximal wall thickening however no evidence of periappendiceal inflammatory changes. Findings are equivocal for acute appendicitis. Clinical correlation with history, physical exam and laboratory values recommended as the possibility of a very early mild acute appendicitis not excluded. Small hiatal hernia with mild wall thickening of the distal esophagus likely due to protrusion of gastric mucosa however esophagitis or other intrinsic/invasive wall lesion not excluded. Clinical correlation recommended as above.
--- NOTE | 2019-01-10 15:09 | CP.PCM.CON ---
History of Present Illness - History of Present Illness History of Present Illness: Patient left GIANLUCA Souza PGY1 Progress Note for Dr. Tom Pt is a 58yo M with PMH of bipolar disorder presenting with L flank pain that began this morning. He reports traveling to [place], returning Tuesday and exp eriencing constipation which resolved with diarrhea this morning. After the diarrhea, pt reported L sided flank pain that he rated 8/10. He then went to the gym to workout which exacerbated the pain. He reports some nausea and dry heaving that has since resolved. He describes the diarrhea as watery and brown. He denies blood in vomit, urine, or stool. He denies prior history of this pain. He denies fever, chills, dysuria, pyuria, or any sick contacts. He reports the abdominal pain has subsided since given pain medication in ER. He reports feeling hungry at this time. SxH: L fibula 1981, L metacarpal fixation 2013 SocH: 30 year pack history. Former Drinker (2011). 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 FamH: denies Meds: none Allergies: NKDA Review of Systems - Constitutional Constitutional: absent: Chills, Fever - EENT Eyes: absent: Blurred Vision - Cardiovascular Cardiovascular: absent: Chest Pain, Diaphoresis, Dyspnea - Respiratory Respiratory: absent: Dyspnea, Wheezing - Gastrointestinal Gastrointestinal: Abdominal Pain, Diarrhea, Nausea, Vomiting - Genitourinary Genitourinary: absent: Dysuria, Hematuria - Musculoskeletal Musculoskeletal: absent: Myalgias - Integumentary Integumentary: absent: Rash - Neurological Neurological: absent: Weakness - Endocrine Endocrine: absent: Polyuria Past Patient History - Infectious Disease Hx of Infectious Diseases: None - Tetanus Immunizations Tetanus Immunization: Unknown - Past Social History Smoking Status: Light Smoker < 10 Cigarettes Daily - CARDIAC Hx Cardiac Disorders: No - PULMONARY Hx Respiratory Disorders: No - NEUROLOGICAL Hx Neurological Disorder: No - HEENT Hx HEENT Problems: No - RENAL Hx Chronic Kidney Disease: No - ENDOCRINE/METABOLIC Hx Endocrine Disorders: No - HEMATOLOGICAL/ONCOLOGICAL Hx Blood Disorders: No - INTEGUMENTARY Hx Dermatological Problems: No - MUSCULOSKELETAL/RHEUMATOLOGICAL Hx Musculoskeletal Disorders: Yes Hx Fractures: Yes - GASTROINTESTINAL Hx Gastrointestinal Disorders: No - GENITOURINARY/GYNECOLOGICAL Hx Genitourinary Disorders: No - PSYCHIATRIC Hx Psychophysiologic Disorder: Yes Hx Bipolar Disorder: Yes Hx Substance Use: Yes (CANNABIS) - SURGICAL HISTORY Hx Orthopedic Surgery: Yes - ANESTHESIA Hx Anesthesia: No Hx Anesthesia Reactions: No Hx Malignant Hyperthermia: No Meds Home Medications: Home Medication List Medication Instructions Recorded Confirmed Type Famotidine [Pepcid] 20 mg PO Q12 PRN #14 tab 01/10/19 Rx Allergies/Adverse Reactions: Allergies Allergy/AdvReac Type Severity Reaction Status Date / Time No Known Allergies Allergy Verified 01/10/19 10:43 Physical Exam - Constitutional Appears: Well, No Acute Distress - Head Exam Head Exam: ATRAUMATIC, NORMOCEPHALIC - Neck Exam Neck exam: Positive for: Normal Inspection. Negative for: Tenderness - Respiratory Exam Respiratory Exam: Clear to Auscultation Bilateral, NORMAL BREATHING PATTERN. absent: Rales, Rhonchi, Wheezes - Cardiovascular Exam Cardiovascular Exam: REGULAR RHYTHM, +S1, +S2. absent: Gallop, Rubs, Systolic Murmur - GI/Abdominal Exam GI & Abdominal Exam: Normal Bowel Sounds, Soft. absent: Distended, Rebound, Tenderness Additional comments: negative Rosving's, Obturator, Psoas signs - Extremities Exam Extremities exam: Positive for: normal inspection. Negative for: pedal edema - Back Exam Back exam: absent: CVA tenderness (L), CVA tenderness (R) - Neurological Exam Neurological exam: Alert, CN II-XII Intact, Oriented x3 - Psychiatric Exam Psychiatric exam: Normal Affect, Normal Mood - Skin Skin Exam: Normal Color Results - Vital Signs Recent Vital Signs: Last Vital Signs Temp 98.9 F 01/10/19 13:07 Pulse 48 L 01/10/19 13:07 Resp 19 01/10/19 13:07 BP 126/76 01/10/19 13:07 Pulse Ox 99 01/10/19 13:07 - Labs Result Diagrams: 01/10/19 11:24 01/10/19 11:24 Labs: Laboratory Results - last 24 hr 01/10/19 01/10/19 01/10/19 11:24 11:24 11:24 WBC 7.7 RBC 4.81 Hgb 12.7 L D Hct 39.2 L MCV 81.5 MCH 26.4 MCHC 32.4 RDW 14.7 H Plt Count 242 MPV 10.9 Neut % (Auto) 67.6 Lymph % (Auto) 23.4 [place] % (Auto) 7.0 H Eos % (Auto) 1.6 Baso % (Auto) 0.4 Lymph # (Auto) 1.8 [place] # (Auto) 0.5 Eos # (Auto) 0.1 Baso # (Auto) 0.03 Absolute Neuts (auto) 5.18 PT 13.0 H INR 1.15 APTT 35.1 Sodium Potassium Chloride Carbon Dioxide Anion Gap BUN Creatinine Est GFR ( Amer) Est GFR (Non-Af Amer) Random Glucose Calcium Magnesium Total Bilirubin AST ALT Alkaline Phosphatase Troponin I Total Protein Albumin Globulin Albumin/Globulin Ratio Lipase Urine Color Yellow Urine Appearance Clear Urine pH 6.5 Ur Specific [place] 1.015 Urine Protein Negative Urine Glucose (UA) Negative Urine Ketones Negative Urine Blood Negative Urine Nitrate Negative Urine Bilirubin Negative Urine Urobilinogen 0.2 Ur Leukocyte Esterase Negative 01/10/19 11:24 WBC RBC Hgb Hct MCV MCH MCHC RDW Plt Count MPV Neut % (Auto) Lymph % (Auto) [place] % (Auto) Eos % (Auto) Baso % (Auto) Lymph # (Auto) [place] # (Auto) Eos # (Auto) Baso # (Auto) Absolute Neuts (auto) PT INR APTT Sodium 139 Potassium 4.0 Chloride 104 Carbon Dioxide 27 Anion Gap 12 BUN 27 H Creatinine 0.8 Est GFR ( Amer) > 60 Est GFR (Non-Af Amer) > 60 Random Glucose 99 Calcium 9.4 Magnesium 2.0 Total Bilirubin 0.3 AST 39 ALT 28 Alkaline Phosphatase 63 Troponin I < 0.01 Total Protein 6.9 Albumin 4.3 Globulin 2.7 Albumin/Globulin Ratio 1.6 Lipase 199 Urine Color Urine Appearance Urine pH Ur Specific [place] Urine Protein Urine Glucose (UA) Urine Ketones Urine Blood Urine Nitrate Urine Bilirubin Urine Urobilinogen Ur Leukocyte Esterase Assessment & Plan - Assessment and Plan (Free Text) Assessment: 58yo M with PMH of bipolar disorder presenting with L flank pain, surgery consulted for r/o appendicitis. Plan: - CT abd/pel showing mildly thickened wall of appendix without evidence of appendicitis - pt afebrile, no leukocytosis - low clinical suspicion for appendicitis at this time - further recs as per Dr. Tom
--- NOTE | 2019-01-10 16:08 | CARD ---
APPROVED REPORT Date of service: 01/10/2019 EKG Measurement Heart [id number] <Conclusion> Sinus bradycardia Otherwise normal ECG
[2019-01-10 16:20] VITALS: BP 147/66; PULSE 47
== END 2019-01-10 17:24 | disposition left against medical advice (07) ==
LOC: ED 10:20
DX: R10.9 Unspecified abdominal pain (principal); R00.1 Bradycardia, unspecified; F17.210 Nicotine dependence, cigarettes, uncomplicated
CPT/HCPCS: 71045; 74177; 80053; 81003; 83690; 83735; 84484; 85025; 85610; 85730; 87086; 93005; 96361; 96374; 96375; 99284; J1885; J7030; Q9967